=== PATIENT | female | born 1990 | race African-American/Black ===

== ENCOUNTER 2017-06-21 11:08 | Emergency (ER) | payer SELFPAY ==
[~2017-06-21] VITALS: Ht 170.2 cm; Wt 94.8 kg
[~2017-06-21 11:08] MED LIST: ACET500T68 PO; CIPR500T94 PO; Doxycycline Hyclate PO; HYDR200T PO; LISI1TAB7 PO; OXYC20TA PO; PHEN118S5 PO; Promethazine Hcl/Codeine PO
[2017-06-21 11:20] VITALS: BP 134/69
[2017-06-21] MEDS ORDERED: PRED20TA PO (11:46)
[2017-06-21] MEDS ORDERED: AZIT250T6 PO (11:46)
--- NOTE | 2017-06-21 11:46 | PHYS DOC ---
Past Medical History Past Medical History: Asthma, Bronchitis, Diverticulitis, Diverticulosis, UTI, Other Additional Past Medical Histor: PCOS; bladder infection, Lupus Past Surgical History: Cholecystectomy, Oophorectomy Additional Past Surgical Histo: Left oopherectomy, Endoscopy, bilateral axilla gland removal, bladder, Alcohol Use: None Drug Use: None Adult General Chief Complaint Chief Complaint: COUGH HPI HPI Patient is a 27 year old female with a history of lupus presents the ED complaining of cough 1 week. Patient states she has had a lingering cough for the past month. Patient states she has not been able to kick the cold that she is having. States she is supposed to see her primary care doctor but her insurance is changing she has been unable to get in. Associated symptoms include sore throat and rhinorrhea. Sick contacts with similar symptoms. Patient is taking [id number] meds with some improvement. Denies chest pain , shortness of breath, dizziness, weakness, nausea/vomiting, headache or syncope. Review of Systems Review of Systems Constitutional: Denies fever or chills [] Eyes: Denies change in visual acuity, redness, or eye pain [] HENT: Complains of sore throat and rhinorrhea.[] Respiratory: Complains of cough. Denies shortness of breath [] Cardiovascular: No additional information not addressed in HPI [] GI: Denies abdominal pain, nausea, vomiting, bloody stools or diarrhea [] : Denies dysuria or hematuria [] Musculoskeletal: Denies back pain or joint pain [] Integument: Denies rash or skin lesions [] Neurologic: Denies headache, focal weakness or sensory changes [] Endocrine: Denies polyuria or polydipsia [] All other systems were reviewed and found to be within normal limits, except as documented in this note. Allergies Allergies Allergies Coded Allergies Type Severity Reaction Last Updated Verified bee venom (honey bee) Allergy Severe Anaphylaxis 08/11/15 Yes shellfish derived Allergy Severe Anaphylaxis 08/11/15 Yes strawberry Allergy Severe Anaphylaxis 08/11/15 Yes Sulfa (Sulfonamide Antibiotics) Allergy Intermediate "edema" 08/11/15 Yes ceftriaxone Allergy Intermediate 08/11/15 Yes tramadol Allergy Intermediate 08/11/15 Yes Physical Exam Physical Exam Constitutional: Well developed, well nourished, no acute distress, non-toxic appearance. [] HENT: Normocephalic, atraumatic, bilateral external ears normal, MILD PHARYNGEAL ERYTHEMA. oropharynx moist, no oral exudates, nose normal. [] Eyes: PERRLA, EOMI, conjunctiva normal, no discharge. [] Neck: Normal range of motion, no tenderness, supple, no stridor. [] Cardiovascular:Heart rate regular rhythm, no murmur [] Lungs & Thorax: Bilateral breath sounds clear to auscultation. DRY COUGH. [] Abdomen: Bowel sounds normal, soft, no tenderness, no masses, no pulsatile masses. [] Skin: Warm, dry, no erythema, no rash. [] Back: No tenderness, no CVA tenderness. [] Extremities: No tenderness, no cyanosis, no clubbing, ROM intact, no edema. [] Neurologic: Alert and oriented X 3, normal motor function, normal sensory function, no focal deficits noted. [] Psychologic: Affect normal, judgement normal, mood normal. [] Current Patient Data Vital Signs Vital Signs Date Time Temp Pulse Resp B/P (MAP) Pulse Ox O2 Delivery O2 Flow Rate FiO2 06/21/17 11:20 98.1 94 18 99 Room Air 98.1 EKG EKG [] Radiology/Procedures Radiology/Procedures [] Course & Med Decision Making Course & Med Decision Making Pertinent Labs and Imaging studies reviewed. (See chart for details) []Patient states her PCP was going to give her a Z-Bijan if she didn't improve. Will discharge with Z-Bijan and prednisone. Discussed follow-up and reasons to return to the ED. Patient understands and agrees with plan. Dragon Disclaimer Dragon Disclaimer This electronic medical record was generated, in whole or in part, using a voice recognition dictation system. Departure Departure Impression: Primary Impression: Acute bronchitis Disposition: 01 HOME, SELF-CARE Condition: IMPROVED Referrals: NO PCP (PCP) PATEL SORIA MD Patient Instructions: Acute Bronchitis Scripts Prednisone (PREDNISONE) 20 Mg Tablet 2 TAB PO DAILY, #10 TAB Prov: ARIC ARMAS 06/21/17 Azithromycin (AZITHROMYCIN TABLET) 250 Mg Tablet 1 PKG PO UD, #6 TAB Prov: ARIC ARMAS 06/21/17 ARIC ARMAS Jun 21, 2017 11:46
== END 2017-06-21 12:00 | disposition home or self-care (01) ==
LOC: ER 11:08
DX: J20.9 Acute bronchitis, unspecified (principal); J45.909 Unspecified asthma, uncomplicated; E28.2 Polycystic ovarian syndrome; Z87.440 Personal history of urinary (tract) infections; Z88.6 Allergy status to analgesic agent; Z91.030 Bee allergy status; Z91.013 Allergy to seafood; Z88.8 Allergy status to other drugs, medicaments and biological substances; Z91.018 Allergy to other foods
CPT/HCPCS: 99283

== ENCOUNTER 2017-09-11 15:21 | Emergency (ER) | payer SELFPAY ==
[2017-09-11 15:57] LABS: BILIRUBIN,URINE NEGATIVE (NEG); CLARITY,URINE CLOUDY; COLOR,URINE YELLOW; GLUCOSE,URINE NEGATIVE (NEG); NITRITE,URINE NEGATIVE (NEG); PROTEIN,URINE 30 mg/dL (NEG-TRACE); UROBILINOGEN,URINE 0.2 mg/dL (0.2 mg/dL)
[2017-09-11 15:58] LABS: URINE HCG POC HCG NEGATIVE (Negative)
[2017-09-11 16:03] LABS: ADD MAN DIFF? NO; BACTERIA,URINE MANY /HPF (0-FEW); SQUAMOUS EPITHELIAL CELL,UR MANY /LPF
[2017-09-11 16:05] LABS: BASO # 0.1 x10^3/uL (0.0-0.2); BASO % 1 % (0-3); EOS # 0.2 x10^3/uL (0.0-0.7); EOS % 3 % (0-3); HEMATOCRIT 35.1 % (36.0-47.0); HEMOGLOBIN 11.8 g/dL (12.0-15.5); LYMPH # 1.9 x10^3/uL (1.0-4.8); LYMPH % 25 % (24-48); MEAN CORPUSCULAR HEMOGLOBIN 27 pg (25-35); MEAN CORPUSCULAR HGB CONC 34 g/dL (31-37); MEAN CORPUSCULAR VOLUME 81 fL (79-100); MONO # 0.6 x10^3/uL (0.0-1.1); MONO % 8 % (0-9); NEUT # 4.7 x10^3uL (1.8-7.7); NEUT % 63 % (31-73); PLATELET COUNT 291 x10^3/uL (140-400); RED BLOOD COUNT 4.31 x10^6/uL (3.50-5.40); RED CELL DISTRIBUTION WIDTH 13.5 % (11.5-14.5); WHITE BLOOD COUNT 7.4 x10^3/uL (4.0-11.0)
[2017-09-11 16:15] LABS: ANION GAP 4 (6-14); BLOOD UREA NITROGEN 18 mg/dL (7-20); BUN/CREATININE RATIO 18 (6-20); CALCIUM 8.9 mg/dL (8.5-10.1); CARBON DIOXIDE 30 mmol/L (21-32); CHLORIDE 103 mmol/L (98-107); GFR 81.1; GLUCOSE 90 mg/dL (70-99); POTASSIUM 4.7 mmol/L (3.5-5.1); SODIUM 137 mmol/L (136-145)
[2017-09-11 16:22] LABS: ALBUMIN 3.5 g/dL (3.4-5.0); ALBUMIN/GLOBULIN RATIO 0.9 (1.0-1.7); ALK PHOS 68 U/L (46-116); ALT (SGPT) 27 U/L (14-59); AST (SGOT) 24 U/L (15-37); TOTAL BILIRUBIN 0.1 mg/dL (0.2-1.0); TOTAL PROTEIN 7.4 g/dL (6.4-8.2)
== END 2017-09-11 17:17 | disposition home or self-care (01) ==
LOC: ER 15:21
DX: N39.0 Urinary tract infection, site not specified (principal); J45.909 Unspecified asthma, uncomplicated; M32.9 Systemic lupus erythematosus, unspecified; Z90.49 Acquired absence of other specified parts of digestive tract; Z90.721 Acquired absence of ovaries, unilateral; Z88.2 Allergy status to sulfonamides; Z88.1 Allergy status to other antibiotic agents; Z88.6 Allergy status to analgesic agent; Z91.030 Bee allergy status; Z91.013 Allergy to seafood; Z88.8 Allergy status to other drugs, medicaments and biological substances; Z91.018 Allergy to other foods
CPT/HCPCS: 36415; 80053; 81001; 81025; 85025; 87086; 99284

== ENCOUNTER 2017-11-13 23:04 | Emergency (ER) | payer SELFPAY ==
[2017-11-14] LABS: ADD MAN DIFF? NO
[2017-11-14 00:06] LABS: BASO % 0 % (0-3); EOS # 0.2 x10^3/uL (0.0-0.7); EOS % 4 % (0-3); HEMATOCRIT 32.3 % (36.0-47.0); HEMOGLOBIN 10.9 g/dL (12.0-15.5); LYMPH # 1.2 x10^3/uL (1.0-4.8); LYMPH % 25 % (24-48); MEAN CORPUSCULAR HEMOGLOBIN 27 pg (25-35); MEAN CORPUSCULAR HGB CONC 34 g/dL (31-37); MEAN CORPUSCULAR VOLUME 82 fL (79-100); MONO # 0.5 x10^3/uL (0.0-1.1); MONO % 10 % (0-9); NEUT % 62 % (31-73); PLATELET COUNT 242 x10^3/uL (140-400); RED BLOOD COUNT 3.96 x10^6/uL (3.50-5.40); RED CELL DISTRIBUTION WIDTH 13.7 % (11.5-14.5); WHITE BLOOD COUNT 4.9 x10^3/uL (4.0-11.0)
[2017-11-14 00:10] LABS: ANION GAP 7 (6-14); BLOOD UREA NITROGEN 15 mg/dL (7-20); CALCIUM 8.8 mg/dL (8.5-10.1); CARBON DIOXIDE 30 mmol/L (21-32); CHLORIDE 103 mmol/L (98-107); GFR 81.1; GLUCOSE 113 mg/dL (70-99); POTASSIUM 4.2 mmol/L (3.5-5.1); SODIUM 140 mmol/L (136-145)
[2017-11-14] MEDS: FUROSEMIDE 40 MG TABLET. PO (00:10)
[2017-11-14] MEDS: PHENAZOPYRIDINE 200 MG TABLET. PO (00:10)
[2017-11-14 00:15] LABS: NT-PRO BNP 16 pg/mL (0-124)
[2017-11-14 00:19] LABS: URINE HCG POC HCG NEGATIVE (Negative)
[2017-11-14 00:20] LABS: BILIRUBIN,URINE NEGATIVE (NEG); CLARITY,URINE CLOUDY; COLOR,URINE YELLOW; GLUCOSE,URINE NEGATIVE (NEG); NITRITE,URINE NEGATIVE (NEG); PH,URINE 5.5; PROTEIN,URINE 30 mg/dL (NEG-TRACE)
[2017-11-14 00:27] LABS: BACTERIA,URINE MANY /HPF (0-FEW); RBC,URINE OCC /HPF (0-2); SQUAMOUS EPITHELIAL CELL,UR MANY /LPF; WBC,URINE OCC /HPF (0-4)
== END 2017-11-14 00:50 | disposition home or self-care (01) ==
LOC: ER 11-14 00:50
DX: R60.0 Localized edema (principal); J45.909 Unspecified asthma, uncomplicated; N39.0 Urinary tract infection, site not specified; Z90.49 Acquired absence of other specified parts of digestive tract; Z88.1 Allergy status to other antibiotic agents; Z91.030 Bee allergy status; Z88.5 Allergy status to narcotic agent; Z91.013 Allergy to seafood; Z88.2 Allergy status to sulfonamides; Z88.8 Allergy status to other drugs, medicaments and biological substances; Z91.018 Allergy to other foods
CPT/HCPCS: 36415; 80048; 81001; 81025; 83880; 85025; 87086; 99284

== ENCOUNTER 2017-11-18 18:59 | Inpatient (IN) | payer SELFPAY ==
[2017-11-18 19:25] LABS: BILIRUBIN,URINE NEGATIVE (NEG); CLARITY,URINE CLEAR; COLOR,URINE YELLOW; GLUCOSE,URINE NEGATIVE (NEG); NITRITE,URINE NEGATIVE (NEG); PH,URINE 5.5; PROTEIN,URINE NEGATIVE (NEG-TRACE); UROBILINOGEN,URINE 0.2 mg/dL (0.2 mg/dL)
[2017-11-18] MEDS: IV NORMAL SALINE 1000ML BAG 1,000 ML IV ×2 (19:34→20:06)
[2017-11-18 19:39] LABS: ADD MAN DIFF? NO; BACTERIA,URINE 0 /HPF (0-FEW); RBC,URINE 0 /HPF (0-2); SQUAMOUS EPITHELIAL CELL,UR MOD /LPF; WBC,URINE 0 /HPF (0-4)
[2017-11-18 19:42] LABS: BASO % 1 % (0-3); EOS # 0.2 x10^3/uL (0.0-0.7); EOS % 4 % (0-3); HEMATOCRIT 33.3 % (36.0-47.0); HEMOGLOBIN 11.1 g/dL (12.0-15.5); LYMPH # 1.7 x10^3/uL (1.0-4.8); LYMPH % 36 % (24-48); MEAN CORPUSCULAR HEMOGLOBIN 27 pg (25-35); MEAN CORPUSCULAR HGB CONC 33 g/dL (31-37); MEAN CORPUSCULAR VOLUME 81 fL (79-100); MONO # 0.6 x10^3/uL (0.0-1.1); MONO % 12 % (0-9); NEUT # 2.3 x10^3uL (1.8-7.7); NEUT % 48 % (31-73); PLATELET COUNT 262 x10^3/uL (140-400); RED BLOOD COUNT 4.12 x10^6/uL (3.50-5.40); RED CELL DISTRIBUTION WIDTH 13.3 % (11.5-14.5); WHITE BLOOD COUNT 4.9 x10^3/uL (4.0-11.0)
[2017-11-18 19:59] LABS: ANION GAP 9 (6-14); BLOOD UREA NITROGEN 13 mg/dL (7-20); BUN/CREATININE RATIO 12 (6-20); CARBON DIOXIDE 28 mmol/L (21-32); CHLORIDE 103 mmol/L (98-107); CREATININE 1.1 mg/dL (0.6-1.0); GFR 72.6; GLUCOSE 91 mg/dL (70-99); POTASSIUM 4.4 mmol/L (3.5-5.1); SODIUM 140 mmol/L (136-145)
[2017-11-18 20:04] LABS: ALBUMIN 3.4 g/dL (3.4-5.0); ALBUMIN/GLOBULIN RATIO 0.8 (1.0-1.7); ALK PHOS 73 U/L (46-116); ALT (SGPT) 25 U/L (14-59); AST (SGOT) 29 U/L (15-37); TOTAL BILIRUBIN 0.3 mg/dL (0.2-1.0); TOTAL PROTEIN 7.5 g/dL (6.4-8.2)
[2017-11-18] MEDS: MORPHINE SULFATE 4 MG/ML DISP.SYRIN. IV (20:25)
[2017-11-18] MEDS: ONDANSETRON PF 4 MG/2 ML VIAL. IV (20:26)
[2017-11-18 20:35] LABS: NEG OBC UR NEG; POS OBC UR POS; U PREG PATIENT NEGATIVE (NEG)
[2017-11-18] MEDS: MEROPENEM 1 GM in IV NORMAL SALINE 100ML 100 ML IV (20:54)
[2017-11-18] MEDS: fentaNYL PF VIAL 100 MCG/2 ML VIAL IV (22:31)
[2017-11-19] MEDS ORDERED: oxyCODONE IR 5 MG TABLET PO (01:15)
[2017-11-19] MEDS ORDERED: oxyCODONE/APAP 7.5/325 1 TAB TABLET PO (01:15)
[2017-11-19] MEDS: fentaNYL PF VIAL 100 MCG/2 ML VIAL IV ×7 (01:58→22:21)
[2017-11-19] MEDS: IV NORMAL SALINE 1000ML BAG 1,000 ML IV ×2 (05:57→12:30)
[2017-11-19] MEDS: MEROPENEM 1 GM in IV NORMAL SALINE 100ML 100 ML IV (05:58)
[2017-11-19] MEDS: MORPHINE SULFATE 4 MG/ML DISP.SYRIN. IV ×3 (08:08→17:01)
[2017-11-19] MEDS: metFORMIN XR 500 MG TAB.ER.24H PO (08:09)
[2017-11-19] MEDS: HYDROXYCHLOROQUINE 200 MG TABLET PO (08:09)
[2017-11-19] MEDS: LISINOPRIL 20 MG TABLET PO (08:10)
[2017-11-19 09:08] LABS: ADD MAN DIFF? NO
[2017-11-19 09:10] LABS: BASO % 0 % (0-3); EOS # 0.2 x10^3/uL (0.0-0.7); EOS % 3 % (0-3); HEMATOCRIT 35.5 % (36.0-47.0); HEMOGLOBIN 11.6 g/dL (12.0-15.5); LYMPH # 1.2 x10^3/uL (1.0-4.8); LYMPH % 21 % (24-48); MEAN CORPUSCULAR HEMOGLOBIN 27 pg (25-35); MEAN CORPUSCULAR HGB CONC 33 g/dL (31-37); MEAN CORPUSCULAR VOLUME 81 fL (79-100); MONO # 0.5 x10^3/uL (0.0-1.1); MONO % 9 % (0-9); NEUT # 3.8 x10^3uL (1.8-7.7); NEUT % 67 % (31-73); PLATELET COUNT 249 x10^3/uL (140-400); RED BLOOD COUNT 4.37 x10^6/uL (3.50-5.40); RED CELL DISTRIBUTION WIDTH 13.6 % (11.5-14.5); WHITE BLOOD COUNT 5.7 x10^3/uL (4.0-11.0)
[2017-11-19 09:34] LABS: ANION GAP 6 (6-14); BLOOD UREA NITROGEN 8 mg/dL (7-20); CALCIUM 8.5 mg/dL (8.5-10.1); CARBON DIOXIDE 30 mmol/L (21-32); CHLORIDE 108 mmol/L (98-107); CREATININE 0.9 mg/dL (0.6-1.0); GFR 91.6; GLUCOSE 97 mg/dL (70-99); SODIUM 144 mmol/L (136-145)
[2017-11-19 09:48] LABS: THYROID STIM HORMONE (TSH) 1.423 uIU/mL (0.358-3.74)
[2017-11-19] MEDS: CLOBETASOL EMOLLIENT 0.05% TOPICAL CREAM 15GM TUBE. TP (13:32)
[2017-11-20] MEDS: fentaNYL PF VIAL 100 MCG/2 ML VIAL IV ×4 (01:46→12:43)
[2017-11-20 05:34] LABS: ADD MAN DIFF? NO
[2017-11-20 05:41] LABS: BASO % 0 % (0-3); EOS # 0.2 x10^3/uL (0.0-0.7); EOS % 3 % (0-3); HEMATOCRIT 32.8 % (36.0-47.0); LYMPH # 1.6 x10^3/uL (1.0-4.8); LYMPH % 28 % (24-48); MEAN CORPUSCULAR HEMOGLOBIN 27 pg (25-35); MEAN CORPUSCULAR HGB CONC 33 g/dL (31-37); MEAN CORPUSCULAR VOLUME 81 fL (79-100); MONO # 0.6 x10^3/uL (0.0-1.1); MONO % 10 % (0-9); NEUT # 3.3 x10^3uL (1.8-7.7); NEUT % 58 % (31-73); PLATELET COUNT 246 x10^3/uL (140-400); RED BLOOD COUNT 4.04 x10^6/uL (3.50-5.40); RED CELL DISTRIBUTION WIDTH 13.6 % (11.5-14.5); WHITE BLOOD COUNT 5.6 x10^3/uL (4.0-11.0)
[2017-11-20 06:07] LABS: ANION GAP 8 (6-14); BLOOD UREA NITROGEN 11 mg/dL (7-20); CALCIUM 8.5 mg/dL (8.5-10.1); CARBON DIOXIDE 28 mmol/L (21-32); CHLORIDE 105 mmol/L (98-107); CREATININE 0.7 mg/dL (0.6-1.0); GFR 122.4; GLUCOSE 101 mg/dL (70-99); POTASSIUM 3.7 mmol/L (3.5-5.1); SODIUM 141 mmol/L (136-145)
[2017-11-20] MEDS: PANTOPRAZOLE 40 MG TABLET.DR. PO (09:44)
[2017-11-20] MEDS: BISACODYL 5 MG TABLET.DR. PO (09:44)
[2017-11-20] MEDS: POLYETHYLENE GLYCOL 3350 17 GM PACKET. PO (09:44)
[2017-11-20] MEDS: LISINOPRIL 20 MG TABLET PO (09:45)
[2017-11-20] MEDS: HYDROXYCHLOROQUINE 200 MG TABLET PO (09:45)
[2017-11-20] MEDS: metFORMIN XR 500 MG TAB.ER.24H PO (09:45)
[2017-11-20] MEDS: oxyCODONE/APAP 7.5/325 1 TAB TABLET PO (16:36)
[2017-11-20] MEDS: MAGNESIUM CITRATE 296 ML SOLUTION. PO (16:36)
== END 2017-11-20 16:40 | disposition home or self-care (01) | DRG 690 ==
LOC: ER 18:59 → 4 NORTH 21:08
DX: N39.0 Urinary tract infection, site not specified (principal); K57.92 Diverticulitis of intestine, part unspecified, without perforation or abscess without bleeding; M32.9 Systemic lupus erythematosus, unspecified; E04.9 Nontoxic goiter, unspecified; E28.2 Polycystic ovarian syndrome; J40 Bronchitis, not specified as acute or chronic; J45.909 Unspecified asthma, uncomplicated; K59.00 Constipation, unspecified; L21.9 Seborrheic dermatitis, unspecified; L73.2 Hidradenitis suppurativa; N80.9 Endometriosis, unspecified; N89.8 Other specified noninflammatory disorders of vagina; Z16.11 Resistance to penicillins; Z16.24 Resistance to multiple antibiotics; K21.9 Gastro-esophageal reflux disease without esophagitis; Z80.3 Family history of malignant neoplasm of breast; Z82.3 Family history of stroke; Z82.49 Family history of ischemic heart disease and other diseases of the circulatory system; Z83.3 Family history of diabetes mellitus; Z87.440 Personal history of urinary (tract) infections; Z88.1 Allergy status to other antibiotic agents; Z90.49 Acquired absence of other specified parts of digestive tract; Z90.710 Acquired absence of both cervix and uterus; Z88.6 Allergy status to analgesic agent; Z88.8 Allergy status to other drugs, medicaments and biological substances; Z91.048 Other nonmedicinal substance allergy status; Z90.721 Acquired absence of ovaries, unilateral
CPT/HCPCS: 36415; 76700; 80048; 80053; 81001; 81025; 84443; 85025; 96374; 96375; 99285; 99285-25; J2185; J2270; J2405; J3010; J7030

== ENCOUNTER 2017-11-21 01:33 | Emergency (ER) | payer SELFPAY ==
[2017-11-21 03:38] LABS: ADD MAN DIFF? NO
[2017-11-21] MEDS ORDERED: ONDANSETRON PF 4 MG/2 ML VIAL. (03:40)
[2017-11-21 03:43] LABS: BASO % 1 % (0-3); EOS # 0.1 x10^3/uL (0.0-0.7); EOS % 1 % (0-3); HEMATOCRIT 35.3 % (36.0-47.0); HEMOGLOBIN 11.8 g/dL (12.0-15.5); LYMPH # 1.1 x10^3/uL (1.0-4.8); LYMPH % 14 % (24-48); MEAN CORPUSCULAR HEMOGLOBIN 27 pg (25-35); MEAN CORPUSCULAR HGB CONC 33 g/dL (31-37); MEAN CORPUSCULAR VOLUME 81 fL (79-100); MONO # 0.6 x10^3/uL (0.0-1.1); MONO % 7 % (0-9); NEUT # 5.9 x10^3uL (1.8-7.7); NEUT % 77 % (31-73); PLATELET COUNT 270 x10^3/uL (140-400); RED BLOOD COUNT 4.38 x10^6/uL (3.50-5.40); RED CELL DISTRIBUTION WIDTH 13.3 % (11.5-14.5); WHITE BLOOD COUNT 7.7 x10^3/uL (4.0-11.0)
[2017-11-21] MEDS: MORPHINE SULFATE 4 MG/ML DISP.SYRIN. IV (03:44)
[2017-11-21 03:48] LABS: ANION GAP 9 (6-14); BLOOD UREA NITROGEN 13 mg/dL (7-20); BUN/CREATININE RATIO 16 (6-20); CALCIUM 9.2 mg/dL (8.5-10.1); CARBON DIOXIDE 30 mmol/L (21-32); CHLORIDE 101 mmol/L (98-107); CREATININE 0.8 mg/dL (0.6-1.0); GFR 104.9; GLUCOSE 99 mg/dL (70-99); POTASSIUM 3.6 mmol/L (3.5-5.1); SODIUM 140 mmol/L (136-145)
[2017-11-21 03:54] LABS: ALBUMIN 3.9 g/dL (3.4-5.0); ALBUMIN/GLOBULIN RATIO 1.1 (1.0-1.7); ALK PHOS 68 U/L (46-116); ALT (SGPT) 22 U/L (14-59); AST (SGOT) 17 U/L (15-37); TOTAL BILIRUBIN 0.5 mg/dL (0.2-1.0); TOTAL PROTEIN 7.6 g/dL (6.4-8.2)
== END 2017-11-21 04:44 | disposition home or self-care (01) ==
LOC: ER 01:33
DX: K62.5 Hemorrhage of anus and rectum (principal); N39.0 Urinary tract infection, site not specified; K59.00 Constipation, unspecified; J45.909 Unspecified asthma, uncomplicated; M32.9 Systemic lupus erythematosus, unspecified; Z90.49 Acquired absence of other specified parts of digestive tract; Z90.721 Acquired absence of ovaries, unilateral; Z88.1 Allergy status to other antibiotic agents; Z91.030 Bee allergy status; Z88.5 Allergy status to narcotic agent; Z91.013 Allergy to seafood; Z88.2 Allergy status to sulfonamides; Z88.8 Allergy status to other drugs, medicaments and biological substances; Z91.018 Allergy to other foods
CPT/HCPCS: 36415; 80053; 85025; 96374; 99284; J2270

== ENCOUNTER 2017-12-28 09:59 | Emergency (ER) | payer SELFPAY ==
[2017-12-28] MEDS: ONDANSETRON ODT 4 MG TAB.RAPDIS. PO (10:34)
[2017-12-28 10:36] LABS: URINE HCG POC HCG NEGATIVE (Negative)
[2017-12-28 11:00] LABS: BILIRUBIN,URINE NEGATIVE (NEG); CLARITY,URINE CLEAR; COLOR,URINE YELLOW; GLUCOSE,URINE NEGATIVE (NEG); NITRITE,URINE NEGATIVE (NEG); PH,URINE 7.5; PROTEIN,URINE NEGATIVE (NEG-TRACE)
[2017-12-28] MEDS ORDERED: ONDANSETRON PF 4 MG/2 ML VIAL. IM (11:00)
[2017-12-28 11:14] LABS: BACTERIA,URINE FEW /HPF (0-FEW); RBC,URINE 0 /HPF (0-2); SQUAMOUS EPITHELIAL CELL,UR MOD /LPF; WBC,URINE OCC /HPF (0-4)
== END 2017-12-28 10:39 | disposition home or self-care (01) ==
LOC: ER 10:39
DX: S09.90XA Unspecified injury of head, initial encounter (principal); J45.909 Unspecified asthma, uncomplicated; Z90.49 Acquired absence of other specified parts of digestive tract; Z88.1 Allergy status to other antibiotic agents; Z91.030 Bee allergy status; Z88.5 Allergy status to narcotic agent; Z91.013 Allergy to seafood; Z88.2 Allergy status to sulfonamides; Z88.8 Allergy status to other drugs, medicaments and biological substances; Z91.018 Allergy to other foods; V43.62XA Car passenger injured in collision with other type car in traffic accident, initial encounter; Y93.89 Activity, other specified; Y92.488 Other paved roadways as the place of occurrence of the external cause; Y99.8 Other external cause status
CPT/HCPCS: 71045; 81001; 81025; 99285-25; Q0162